=== PATIENT | female | born 1975 | race Hispanic/Latino ===

== ENCOUNTER 2016-10-04 10:14 | Day surgery (SDC) | payer BC ==
[2016-09-30 12:08] VITALS: BMI 20.1
[2016-10-04] MEDS ORDERED: Bupivacaine HCl 0.5% PF (30 ml) Inj ONE (10:36)
[2016-10-04 11:06] LABS: HEMATOCRIT 39.1 % (34.0-47.0); MEAN CELL VOLUME 93.9 fl (81.0-99.0); MEAN CORPUSCULAR HEMOGLOBIN 31.7 pg (27.0-31.0); MEAN CORPUSCULAR HGB CONC 33.8 g/dL (33.0-37.0); RED CELL DISTRIBUTION WIDTH 12.9 % (11.5-14.5); WHITE BLOOD COUNT 6.8 K/uL (4.8-10.8)
[2016-10-04] MEDS ORDERED: Lactated Ringer's 1,000 ML IV ONE ×3 (11:41→16:00)
[2016-10-04] MEDS ORDERED: Propofol 10 mg/ml Inj (20 ML) ONE (12:01)
[2016-10-04] MEDS ORDERED: ePHEDrine 50 mg/ml Inj ONE (12:02)
[2016-10-04] MEDS ORDERED: Succinylcholine 200 mg/10 ml Inj IV ONE (12:02)
[2016-10-04] MEDS ORDERED: Lidocaine 4% (Laryng-O-Jet) Kit MM ONE (12:02)
[2016-10-04] MEDS ORDERED: Midazolam 2 MG/2 ML VIAL ONE (12:02)
[2016-10-04] MEDS ORDERED: Rocuronium 10 mg/ml (5 ml) ONE (12:03)
[2016-10-04] MEDS ORDERED: Lidocaine 1% Inj (20ml) ONE (12:24)
[2016-10-04] MEDS ORDERED: Dexamethasone 4 mg/1 ml ONE (14:31)
[2016-10-04] MEDS ORDERED: Neostigmine Methylsulfate 2 MG/2 ML ML IV ONE (14:31)
[2016-10-04] MEDS ORDERED: Desflurane Inhalation Anesthetic Liq (240 ml) ONE (14:32)
[2016-10-04] MEDS ORDERED: HYDROmorphone 0.5 mg/0.5 ml ISec IVP PRN (14:49)
[2016-10-04] MEDS ORDERED: Lactated Ringer's 1,000 ML IV SCH (14:49)
[2016-10-04] MEDS ORDERED: Oxycodone/Acetaminophen 5/325 mg Tab PO ONE ×2 (15:24→18:00)
[2016-10-04 16:20] VITALS: RESP 18
[2016-10-04 17:00] VITALS: TEMP 98.4; O2SAT 100
[2016-10-04] MEDS ORDERED: Oxycodone/Acetaminophen 5/325 mg Tab PO PRN (17:21)
[2016-10-04 18:09] VITALS: BP 110/70; PULSE 72
--- NOTE | 2016-10-06 08:28 | OP ---
PROCEDURE DATE: 10/04/2016 PREOPERATIVE DIAGNOSES: Pelvic pain, dysmenorrhea, dyspareunia and rule out endometriosis. POSTOPERATIVE DIAGNOSES: Pelvic pain, dysmenorrhea, dyspareunia and rule out endometriosis, pelvic adhesions. SURGEON: Frederick Minaya MD [id number] INTERFACE DEVELOPER: Mamie Donaldson PA-C PROCEDURE PERFORMED. Diagnostic hysteroscopy, cystoscopy with bilateral ureteral catheterization, retrograde injection of idinsonic green ICG into the right and left ureters, robotic laparoscopy adhesiolysis, right ovariolysis, excision of endometriosis, bilateral ureterolysis. ANESTHESIA: General. ESTIMATED BLOOD LOSS: 100 mL. COMPLICATIONS: None. SPECIMEN: Multiple specimens containing inflammatory tissue and endometriosis and adhesions sent to pathology. DRAINS: Soler catheter. COMPLICATIONS: None. BRIEF INDICATION FOR THE PROCEDURE: The patient is a 40-year-old female with a history of pelvic pain, dysmenorrhea, dyspareunia of long duration. She was evaluated preoperatively confirming presence of exquisite retrocervical tenderness as well as having an immunological inflammatory findings of active inflammation and elevation of serum inflammatory cytokines. Prior to the surgery, the patient was counseled with regards to risks and benefits of the procedure. Prior to the surgery, the patient consented for procedure. The goal of surgery, the likelihood of a successful outcome, alternative modalities and treatment, potential risks were freely we discussed with ample opportunity for the patient to ask and receive answers to questions. The patient was counseled and demonstrated understanding of the potential risks of the procedure including but not limited to bleeding, hemorrhage, need for transfusion, infection, sepsis, injury to the ureter or bladder, ureteral offices bowel and bleeding. The patient signed a consent and was taken to the OR. DESCRIPTION OF PROCEDURE: The patient was brought to the operating room and placed on the operating table in the dorsal lithotomy position. An IV was started and antibiotics were administered. After satisfactory anesthesia was induced, the patient was positioned in the dorsal lithotomy position. The patient was stayed with stable cardiac and pulmonary parameters in this position and all areas prone to pressure injuries were well padded. The external genitalia was sterilely prepped and draped in a standard fashion as well as the abdomen. A timeout was performed. A 22 [place] cystoscope was inserted into the bladder under direct vision, cystoscopy was performed and attention was paid to both the ureteral orifices, which were in normal anatomic position. The left ureteral orifice was catheterized with a 5-[place] open- ended ureteral catheter, a solution of ICG was injected for a total of 2.5 mL into the left ureter after the ureteral catheter was advanced into the distal ureter. The ureteral catheter was then removed. Attention was paid to the right ureteral orifice. A ureteral catheter was advanced to the left of the right distal ureter, an additional 2.5 mL of IC-Green was injected into the right ureter. The ureteral catheter was then removed. The bladder was inspected and noted to be free of tumor, stones or bleeding sources. The cystoscope was removed and the 16-[place] Soler was placed to gravity to drainage. At this point, attention was in the vaginal area where a speculum was placed in the vagina. The anterior lip of the cervix was grasped and the cervix was gently dilated. A hysteroscope was then inserted into the uterine cavity and the uterine cavity was visualized. Both ostia appeared to be normal position and with free fluid running through them, there were no polyps or any other abnormal lesions in the cavity. The endometrium appeared to be normal. At this point, a uterine manipulator was placed into the uterus and attention was on the abdomen. After re-gowning and re-gloving, an incision was made on the umbilicus and through this incision carried down all the way down to the fascia, which was then incised and the peritoneum was entered without any difficulty with an open laparoscopy type technique. An 8 mm blunt trocar was then inserted. The abdomen was insufflated. Under direct visualization, an additional 3 trocars were inserted; left lower quadrant 8 mm, left mid quadrant 5 mm and right lower quadrant 8 mm. At this point, the da Abiel robot was brought into the field and carefully docked into position. The findings were as follows: There was evidence of extensive inflammatory changes in the pelvis with free fluid, thick adhesions involving the right pelvic sidewall. The peritoneum appeared to be erythematous and red. The uterus had multiple lesions in serosal surface. The lesions had an inflammatory appearance with a white patina. Not an infected appearance, mostly fibrin-like and diffusely and thickened. The anterior part of the bladder reflection was inspected, appearing to be normal. Both ovaries appeared to be of normal size. There appeared to be a small area of black, brown like lesion on the right ovary, which was immediately bipolar coagulated in extremely gentle way, without penetrating deep and distorting any cortical tissue. At this point, attention was first on the right hand side of the pelvic sidewall where an erythematous and inflamed area was identified. The ureter was identified utilizing fluorescent. The peritoneum was lifted, the retroperitoneal space was lifted up. The ureter pushed out of the way and a wide area of peritoneum was excised without any complication in a very gentle way, with great attention not to damage the neural and vascular bundles. At this point, attention was on the right side, which was the most severely affected side. Thick adhesions were present in the ovary and the right pelvic sidewall. By elevating the ovary, adhesions were identified. In a progressive way they were excised and sent to pathology. These were very vascular adhesions. The right pelvic sidewall peritoneum was extremely inflamed and red. The ureter was identified utilizing fluorescent ICD technology. The retroperitoneal space was then entered. The ureter was progressively lateralized. Great attention was made not to damage the right vessels or nerves bundles. An progressive dissection was performed excising a large area of tissue containing ____ type of inflammatory endometriosis. Additional dissection was performed taking a light swab of the right peritoneal sidewall of tissue. At this point, a small bleeder was noted in the right pelvic sidewall. This was coagulated utilizing bipolar cautery. It required a couple attempts to be made, but a small amount of bleeding was controlled without any problems. At this point, additional adhesions were lysed between the ovary and the right pelvic sidewall. Some adhesions that were encapsulated in the ovary were also excised. At this point, the pelvis was abundantly irrigated. A right paratubal cyst was also removed and sent to pathology. It was checked for hemostasis and appeared to be excellent. The biopsy then was obtained from the inflammatory tissue on the uterus of the fibroin-like soft material and a small piece of Surgicel was placed in the right hand dissection area to ensure further hemostasis as a precautionary measure. At this point, the da Abiel robot was undocked. The abdomen was desufflated. The instruments were removed. The incisions were closed in layers with 0 PDS for the fascia and Monocryl for the skin. All the instruments were also removed from the vagina. The cervix was inspected to make sure that it was dry and bloodless and a small area of bleeding from the tenaculum was coagulated using a Silvadene stick. At the end of the procedure, all tapes and instrument counts were correct. The patient tolerated the procedure well and was taken to recovery room in excellent condition. Frederick Minaya MD cc: [id number] TT: 10/05/2016 21:05:24 jn [email or web address]
--- NOTE | 2016-10-06 19:06 | PROCN ---
DATE: 10/04/2016 SURGEON: Dr. Frederick Minaya. PREOPERATIVE DIAGNOSES: Pelvic pain, dysmenorrhea, dyspareunia, rule out endometriosis. POSTOPERATIVE DIAGNOSES: Pelvic pain, dysmenorrhea, dyspareunia, rule out endometriosis, pelvic adhe sions. FILTER WASHER: debbie Lanza PA-C. PROCEDURE: Diagnostic hysteroscopy, cystoscopy with bilateral ureteral catheterization, retrograde i njection of Indocyanine Green ICG dye into bilateral ureters, robotic laparoscopy, lysis of adhesions , excision of endometriosis and bilateral ureterolysis. SURGICAL PHYSICIAN FILTER WASHER MASTER YACHT NOTE: Mamie Dominguez am a board certified surgi michael physician auction assistant whose assistance was needed during this case for positioning of the patient, opening and closing incisions, placement of DaVinci robotic ports, connection of robotic arms, uterin e manipulation, intraabdominal suctioning and retracting and retrieval of specimens during case and e xchange of robotic instruments for successful completion of the case. My assistance was deemed neces minnie for successful completion of the case and I was present for the entire case with Dr. Minaya. Mamie Donaldson PA-C Frederick Minaya MD cc: [id number] TT: 10/06/2016 19:05:39 Confirmation # [id number] Dictation # [id number] [email or web address]
== END 2016-10-04 18:45 | disposition home or self-care (01) ==
LOC: H.OPSURG 10:14
PROVIDERS: ATTEND Obstetrics & Gynecology Reproductive Endocrinology
DX: N80.0 Endometriosis of uterus (principal); R10.2 Pelvic and perineal pain; N94.19 Other specified dyspareunia; N94.6 Dysmenorrhea, unspecified
CPT/HCPCS: 36415; 52330; 58563; 85027; 86850; 86900; 88305; C1729; J0330; J0690; J1100; J2250; J2405; J2704; J2710; J3010; J7030; J7040; J7120